=== PATIENT | female | born 1985 | race African-American/Black ===

== ENCOUNTER 2016-06-12 00:53 | Emergency (ER) | payer MEDICARE, OTHER ==
[~2016-06-12] VITALS: Ht 160 cm; Wt 155.0 kg
[~2016-06-12 00:53] MED LIST: LITH450 PO; RISP3 PO
[2016-06-12 00:57] VITALS: BP 122/87; PULSE 88; RESP 15; TEMP 97.8; O2SAT 100
[2016-06-12] MEDS ORDERED: diphenhydrAMINE HCL 50 MG CAP PO ONE (01:45)
--- NOTE | 2016-06-12 01:47 | PD ---
HPI Chief Complaint: Skin Problem Time Seen by Provider: 01:43 Travel History International Travel<30 days: No Contact w/Intl Traveler<30days: No Traveled to known affect area: No History of Present Illness HPI 31-year-old black female presents emergency Department with complaints of a pruritic rash under her breasts and on her right side. She does not recall any causative agent. She has not been sick recently. She does not have any allergies and medicines. Symptoms are mild to moderate. PFSH Past Medical History Bipolar Disorder: Yes Anxiety: Yes Depression: Yes Cardiovascular Problems: Yes (Per patient, used to have chest pains) High Cholesterol: Yes Chest Pain: Yes Developmental Delay: Yes Diabetes: Yes Diminished Hearing: No Endocrine: No Gastrointestinal Disorders: Yes Genitourinary: Yes Headaches: Yes (Per Patient) Hiatal Hernia: Yes (Hx per records) Hypertension: No Immune Disorder: No Implanted Vascular Access Dvce: No Musculoskeletal: No Neurologic: Yes Psychiatric: Yes Reproductive: No Respiratory: No Immunizations Current: Yes Schizophrenia: Yes Seizures: Yes (Per Patient) : 6 Para: 5 Miscarriage: 0 : 0 Past Surgical History Body Medical Devices: UNABLE TO RECORD INTERVIEW - PT UNABLE TO RESPOND Neurologic Surgery: No Social History Alcohol Use: No Tobacco Use: Yes (PACK PER WEEK) Substance Use: No Allergies-Medications (Allergen,Severity, Reaction): Coded Allergies: No Known Allergies (Unverified , 06/12/16) Reported Meds & Prescriptions Reported Meds & Active Scripts Active [place] Carbonate ER ([place] Carbonate) 450 Mg Tabcr 900 Mg PO BID 30 Days Reported Risperdal (Risperidone) 3 Mg Tab 4 Mg PO BID Review of Systems Except as stated in HPI: all other systems reviewed are Neg General / Constitutional: No: Fever, Chills Eyes: No: Blurred Vision, Photophobia HENT: No: Headaches, Sore Throat, Congestion Cardiovascular: No: Chest Pain or Discomfort, Palpitations Respiratory: No: Cough, Shortness of Breath Gastrointestinal: No: Nausea (yes) Genitourinary: No: Urgency, Frequency Musculoskeletal: No: Myalgias, Pain Skin: Positive Rash, Positive Itching, No Lumps, No Hives Neurologic: No: Headache, Change in Mentation Physical Exam Narrative GENERAL: Well-developed, well-nourished in no acute distress. Nontoxic appearing. The patient's examined with Veronica and the nurse present. HEAD: Normocephalic, atraumatic. EYES: Pupils equal round and reactive. Extraocular motions intact. No scleral icterus. No injection or drainage. ENT: TMs clear without erythema. The external auditory canals clear. Nose: clear . Posterior pharynx is pink and moist. No tonsillar edema or exudate. Uvula midline. Airway patent. NECK: Trachea midline.Supple, nontender, moves head freely. No central bony tenderness or spasm. CARDIOVASCULAR: Regular rate and rhythm without murmurs, gallops, or rubs. RESPIRATORY: Clear to auscultation. Breath sounds equal bilaterally. No wheezes , rales, or rhonchi. GASTROINTESTINAL: Abdomen soft, non-tender, nondistended. No hepato-splenomegaly , or palpable masses. No guarding. EXTREMITIES: No clubbing, cyanosis, or edema. No joint tenderness, effusion, or edema noted. BACK: Nontender without deformity or crepitance. No flank tenderness. Skin: The patient has macular slightly scaly circular and ovoid lesions up underneath both breasts and just lateral to the right breast on the anterior axillary line area. There are no lesions on the extremities or abdomen. Data Data Last Documented VS Vital Signs Date Time Temp Pulse Resp B/P Pulse Ox O2 Delivery O2 Flow Rate FiO2 06/12/16 00:57 97.8 88 15 122/87 100 Room Air Orders Ed Urine Pregnancytest Poc (06/12/16 01:41) Diphenhydramine (Benadryl) (06/12/16 01:45) MDM Medical Decision Making Medical Screen Exam Complete: Yes Emergency Medical Condition: Yes Medical Record Reviewed: Yes Interpretation(s) HCG negative Differential Diagnosis MDM: High Differential diagnoses: Abscess, folliculitis, cellulitis, lymphangitis, abrasion, contact dermatitis, intertrigo, allergic reaction, pityriasis Narrative Course The patient states that she has not had a period in as long as she can remember. She would like to be checked for . Patient is given Benadryl for itching. This is dermatitis Diagnosis Primary Impression: Dermatitis Patient Instructions: General Instructions Additional Instructions: Rest. Keep clean and dry. Zyrtec and triamcinolone. Follow-up with your doctor next week. Med/Other Pt SpecificInfo: Prescription(s) given Scripts Triamcinolone Topical 0.1% Cream1 Applic TOPICAL BID #30 GM Prov:Shilpa Montejo MD 06/12/16 Cetirizine (Zyrtec Allergy)10 Mg Cap10 Mg PO DAILY #10 CAP Prov:Shilpa Montejo MD 06/12/16 Disposition: 01 DISCHARGE HOME Condition: Stable Farshad Arellano Jun 12, 2016 01:47
[2016-06-12] MEDS ORDERED: ZYRT10CA PO (02:06)
[2016-06-12] MEDS ORDERED: TRIA.1%T TOPICAL (02:06)
== END 2016-06-12 02:18 | disposition home or self-care (01) ==
LOC: NEPB 00:53
DX: L30.9 Dermatitis, unspecified (principal); Z32.02 Encounter for pregnancy test, result negative; F17.210 Nicotine dependence, cigarettes, uncomplicated; F31.9 Bipolar disorder, unspecified; F20.9 Schizophrenia, unspecified; F41.8 Other specified anxiety disorders; E11.9 Type 2 diabetes mellitus without complications
CPT/HCPCS: 84703; 99282; Q0163

== ENCOUNTER 2016-08-23 09:29 | Emergency (ER) | payer MEDICARE, OTHER ==
[~2016-08-23] VITALS: Ht 160 cm; Wt 130.0 kg
[~2016-08-23 09:29] MED LIST changes: +TRIA.1%T TOPICAL; +ZYRT10CA PO
[2016-08-23 09:32] VITALS: BP 119/80; PULSE 70; RESP 20; TEMP 97.3; O2SAT 98
[2016-08-23] MEDS ORDERED: LITH450T PO (09:56)
[2016-08-23] MEDS ORDERED: TOPA25TA8 PO (09:56)
[2016-08-23] MEDS ORDERED: LURA1TAB2 PO (09:56)
--- NOTE | 2016-08-23 09:58 | PD ---
HPI Chief Complaint: Wallpaper Installer Problem/Complaint Time Seen by Provider: 09:44 Travel History International Travel<30 days: No Contact w/Intl Traveler<30days: No Traveled to known affect area: No History of Present Illness HPI The patient is a 31-year-old [place] female who presents to the emergency Department for vaginal bleeding. The patient is a whose last menstrual cycle was approximately 3 years ago when she was 28 years old. The patient states 3 days ago she developed vaginal bleeding which she describes as dark, clots, and moderate in intensity. The patient also complains of lower abdominal pain cramping that radiates to the back. Patient denies any nausea, vomiting, dysuria, frequency, or urgency. The patient does have a history of underlying psychiatric disorders for which she takes lithium, denies any known history of thyroid disorders. PFSH Past Medical History Bipolar Disorder: Yes Anxiety: Yes Depression: Yes Cardiovascular Problems: Yes High Cholesterol: Yes Chest Pain: Yes Developmental Delay: Yes Diabetes: Yes Patient Takes Glucophage: No Diminished Hearing: No Endocrine: No Gastrointestinal Disorders: Yes Genitourinary: Yes Headaches: Yes Hiatal Hernia: Yes Hypertension: No Immune Disorder: No Implanted Vascular Access Dvce: No Musculoskeletal: No Neurologic: Yes Psychiatric: Yes Reproductive: No Respiratory: No Immunizations Current: Yes Schizophrenia: Yes Seizures: Yes ?: Unknown : 6 Para: 5 Miscarriage: 0 : 0 Past Surgical History Body Medical Devices: UNABLE TO RECORD INTERVIEW - PT UNABLE TO RESPOND Neurologic Surgery: No Social History Alcohol Use: No Tobacco Use: Yes Substance Use: No Allergies-Medications (Allergen,Severity, Reaction): Coded Allergies: No Known Allergies (Unverified , 08/23/16) Reported Meds & Prescriptions Reported Meds & Active Scripts Active Reported Topamax (Topiramate) 25 Mg Tab Unknown Dose PO BID Latuda (Lurasidone) 60 Mg Tab 60 Mg PO BID [place] Carbonate ER ([place] Carbonate) 450 Mg Tab 900 Mg PO BID Review of Systems Except as stated in HPI: all other systems reviewed are Neg General / Constitutional: No: Fever Cardiovascular: No: Chest Pain or Discomfort Respiratory: No: Shortness of Breath Gastrointestinal: No: Nausea, Vomiting, Abdominal Pain Genitourinary: Positive: Pelvic Pain, Dysmenorrhea, Menorrhagia, Metorrhagia, Vaginal Bleeding, No: Dysuria Psychiatric: Positive: Disorder of Thought Physical Exam Narrative GENERAL: Awake, alert, 31-year-old female who appears her stated age and is in no acute respiratory distress. SKIN: Focused skin assessment warm/dry. HEAD: Atraumatic. Normocephalic. EYES: Pupils equal and round. No scleral icterus. No injection or drainage. ENT: No nasal bleeding or discharge. Mucous membranes pink and moist. NECK: Trachea midline. No JVD. CARDIOVASCULAR: Regular rate and rhythm. No murmur appreciated. RESPIRATORY: No accessory muscle use. Clear to auscultation. Breath sounds equal bilaterally. GASTROINTESTINAL: Abdomen soft, obese, no rebound tenderness. Back: No CVA tenderness. Pelvic: The exam was performed in the presence of a female nurse. External examination reveals blood at the introitus. Speculum examination reveals small metal blood in the vaginal vault with a few small dark-colored blood clots. Cervix is closed. MUSCULOSKELETAL: No obvious deformities. No clubbing. No cyanosis. No edema. NEUROLOGICAL: Awake and alert. No obvious cranial nerve deficits. Motor grossly within normal limits. Normal speech. PSYCHIATRIC: Appropriate mood and affect; insight and judgment normal. Data Data Last Documented VS Vital Signs Date Time Temp Pulse Resp B/P Pulse Ox O2 Delivery O2 Flow Rate FiO2 08/23/16 09:32 97.3 70 20 119/80 98 Room Air Orders Complete Blood Count With Diff (08/23/16 09:54) Comprehensive Metabolic Panel (08/23/16 09:54) Urinalysis - C+S If Indicated (08/23/16 09:54) Ed Urine Pregnancytest Poc (08/23/16 09:54) Thyroid Stimulating Hormone (08/23/16 09:54) Free Thyroxine (T4) (08/23/16 09:54) Free T3 (08/23/16 09:54) [place] (Li) (08/23/16 09:58) Labs Laboratory Tests Test 08/23/16 10:25 White Blood Count 6.6 TH/MM3 Red Blood Count 4.55 MIL/MM3 Hemoglobin 11.2 GM/DL Hematocrit 35.1 % Mean Corpuscular Volume 77.0 FL Mean Corpuscular Hemoglobin 24.6 PG Mean Corpuscular Hemoglobin 32.0 % Concent Red Cell Distribution Width 18.1 % Platelet Count 322 TH/MM3 Mean Platelet Volume 7.6 FL Neutrophils (%) (Auto) 52.4 % Lymphocytes (%) (Auto) 39.4 % Monocytes (%) (Auto) 5.1 % Eosinophils (%) (Auto) 2.0 % Basophils (%) (Auto) 1.1 % Neutrophils # (Auto) 3.5 TH/MM3 Lymphocytes # (Auto) 2.6 TH/MM3 Monocytes # (Auto) 0.3 TH/MM3 Eosinophils # (Auto) 0.1 TH/MM3 Basophils # (Auto) 0.1 TH/MM3 CBC Comment AUTO DIFF Differential Comment AUTO DIFF CONFIRMED Sodium Level 139 MEQ/L Potassium Level 3.4 MEQ/L Chloride Level 108 MEQ/L Carbon Dioxide Level 24.5 MEQ/L Anion Gap 7 MEQ/L Blood Urea Nitrogen 6 MG/DL Creatinine 0.71 MG/DL Estimat Glomerular Filtration 115 ML/MIN Rate Random Glucose 85 MG/DL Calcium Level 8.3 MG/DL Total Bilirubin 0.3 MG/DL Aspartate Amino Transf 11 U/L (AST/SGOT) Alanine Aminotransferase 16 U/L (ALT/SGPT) Alkaline Phosphatase 112 U/L Total Protein 7.3 GM/DL Albumin 3.2 GM/DL Free Thyroxine 1.04 NG/DL Free Triiodothyronine (T3) 2.46 PG/ML pg/dL Thyroid Stimulating Hormone 2.410 uIU/ML 3rd Gen [place] Level 0.1 MEQ/L MDM Medical Decision Making Medical Screen Exam Complete: Yes Emergency Medical Condition: Yes Medical Record Reviewed: Yes Interpretation(s) Laboratory Tests Test 08/23/16 10:25 White Blood Count 6.6 TH/MM3 Red Blood Count 4.55 MIL/MM3 Hemoglobin 11.2 GM/DL Hematocrit 35.1 % Mean Corpuscular Volume 77.0 FL Mean Corpuscular Hemoglobin 24.6 PG Mean Corpuscular Hemoglobin 32.0 % Concent Red Cell Distribution Width 18.1 % Platelet Count 322 TH/MM3 Mean Platelet Volume 7.6 FL Neutrophils (%) (Auto) 52.4 % Lymphocytes (%) (Auto) 39.4 % Monocytes (%) (Auto) 5.1 % Eosinophils (%) (Auto) 2.0 % Basophils (%) (Auto) 1.1 % Neutrophils # (Auto) 3.5 TH/MM3 Lymphocytes # (Auto) 2.6 TH/MM3 Monocytes # (Auto) 0.3 TH/MM3 Eosinophils # (Auto) 0.1 TH/MM3 Basophils # (Auto) 0.1 TH/MM3 CBC Comment AUTO DIFF Differential Comment AUTO DIFF CONFIRMED Sodium Level 139 MEQ/L Potassium Level 3.4 MEQ/L Chloride Level 108 MEQ/L Carbon Dioxide Level 24.5 MEQ/L Anion Gap 7 MEQ/L Blood Urea Nitrogen 6 MG/DL Creatinine 0.71 MG/DL Estimat Glomerular Filtration 115 ML/MIN Rate Random Glucose 85 MG/DL Calcium Level 8.3 MG/DL Total Bilirubin 0.3 MG/DL Aspartate Amino Transf 11 U/L (AST/SGOT) Alanine Aminotransferase 16 U/L (ALT/SGPT) Alkaline Phosphatase 112 U/L Total Protein 7.3 GM/DL Albumin 3.2 GM/DL Free Thyroxine 1.04 NG/DL Free Triiodothyronine (T3) 2.46 PG/ML pg/dL Thyroid Stimulating Hormone 2.410 uIU/ML 3rd Gen [place] Level 0.1 MEQ/L Differential Diagnosis Differential diagnosis includes dysmenorrhea, menorrhagia, dysfunctional uterine bleeding, , medication side effect, hypothyroidism. Narrative Course IV was established, labs are drawn and sent, and the patient was placed on cardiac telemetry monitoring and continuous pulse oximetry monitoring. TSH, free T4, T3, and lithium level were sent to lab. A pelvic exam was performed in the presence of a female nurse. Hemoglobin is unremarkable. TSH, free T3, free T4 normal. [place] is subtherapeutic. The patient appears to have abnormal vaginal bleeding, is advised to follow-up with a booster operator. Diagnosis Primary Impression: Vaginal bleeding Patient Instructions: General Instructions Additional Instructions: Please provide the patient a copy of her labs at discharge. Follow-up with gynecology on an outpatient basis. Return if symptoms worsen or progress. Disposition: 01 DISCHARGE HOME Condition: Stable Joe Mccormick MD August 23, 2016 09:58
[2016-08-23 10:41] LABS: AUTOMATED NEUTROPHIL # 3.5 TH/MM3 (1.8-7.7); BASOPHIL # 0.1 TH/MM3 (0-0.2); BASOPHIL % 1.1 % (0.0-2.0); EOSINOPHIL # 0.1 TH/MM3 (0-0.4); HEMATOCRIT 35.1 % (35.0-46.0); LYMPH % 39.4 % (9.0-44.0); LYMPHOCYTE # 2.6 TH/MM3 (1.0-4.8); MEAN CORPUSCULAR HEMOGLOBIN 24.6 PG (27.0-34.0); MONO % 5.1 % (0.0-8.0); NEUT % 52.4 % (16.0-70.0); PLATELET COUNT 322 TH/MM3 (150-450); RED BLOOD COUNT 4.55 MIL/MM3 (4.00-5.30); RED CELL DISTRIBUTION WIDTH 18.1 % (11.6-17.2); WHITE BLOOD COUNT 6.6 TH/MM3 (4.0-11.0)
[2016-08-23 10:44] LABS: HEMO FLAGS AUTO DIFF
[2016-08-23 10:58] LABS: ANION GAP 7 MEQ/L (5-15); AST (GOT) 11 U/L (15-37); BICARBONATE 24.5 MEQ/L (21.0-32.0); BLOOD UREA NITROGEN 6 MG/DL (7-18); CHLORIDE 108 MEQ/L (98-107); GLOMERULAR FILTRATION RATE 115 ML/MIN (>89); POTASSIUM 3.4 MEQ/L (3.5-5.1); SODIUM (NA) 139 MEQ/L (136-145)
[2016-08-23 11:09] LABS: ALKALINE PHOSPHATASE 112 U/L (45-117); ALT (GPT) 16 U/L (10-53); FREE T3 2.46 PG/ML (2.18-3.98); FREE T4 1.04 NG/DL (0.76-1.46); TOTAL BILIRUBIN ADULT 0.3 MG/DL (0.2-1.0)
[2016-08-23 11:21] LABS: SCAN/DIFF AUTO DIFF CONFIRMED
[2016-08-23 12:10] LABS: BLOOD, URINE LARGE (NEG); GLUCOSE,URINE NEG (NEG); KETONE, URINE NEG (NEG); MUCUS URINE MOD /lpf (OCC); NITRITE,URINE NEG (NEG); PH, URINE 6.5 (5.0-8.5); SQUAMOUS EPITHELIAL CELL URINE 1 /hpf (0-5)
[2016-08-23 12:12] LABS: URINE COLOR RED (YELLW/STRAW)
[2016-08-23 12:13] LABS: COMMENT (UR) CULTURE INDICATED; CULTURE IF INDICATED CULTURE INDICATED
[2016-08-23] MEDS ORDERED: BACT800T5 PO (12:26)
== END 2016-08-23 13:10 | disposition home or self-care (01) ==
LOC: NEPD 09:29
DX: N93.9 Abnormal uterine and vaginal bleeding, unspecified (principal); R10.30 Lower abdominal pain, unspecified; F31.9 Bipolar disorder, unspecified; F41.9 Anxiety disorder, unspecified; E78.00 Pure hypercholesterolemia, unspecified; E11.9 Type 2 diabetes mellitus without complications; F20.9 Schizophrenia, unspecified
CPT/HCPCS: 80053; 80178; 81001; 84439; 84443; 84481; 84703; 85025; 87086; 99284

== ENCOUNTER 2016-10-31 10:10 | Emergency (ER) | payer MEDICARE, OTHER ==
[~2016-10-31] VITALS: Ht 160 cm; Wt 129.5 kg
[~2016-10-31 10:10] MED LIST changes: +BACT800T5 PO; -LITH450 PO; +LITH450T PO; +LURA1TAB2 PO; -RISP3 PO; +TOPA25TA8 PO; -TRIA.1%T TOPICAL; -ZYRT10CA PO
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
[2016-10-31 10:24] VITALS: BP 121/69; PULSE 66; RESP 18; TEMP 98.6; O2SAT 99
[2016-10-31] MEDS ORDERED: TETANUS/DIPHTHERIA TOXOID ADULT 0.5 ML VIAL IM ONE (10:30)
== END 2016-10-31 11:01 | disposition home or self-care (01) ==
LOC: NEPD 10:10
DX: S50.811A Abrasion of right forearm, initial encounter (principal); F31.9 Bipolar disorder, unspecified; F41.9 Anxiety disorder, unspecified; E11.9 Type 2 diabetes mellitus without complications; E78.00 Pure hypercholesterolemia, unspecified; R56.9 Unspecified convulsions; Z23 Encounter for immunization; Z72.0 Tobacco use; Y04.2XXA Assault by strike against or bumped into by another person, initial encounter
CPT/HCPCS: 90471; 90714

== ENCOUNTER 2018-01-15 20:22 | Inpatient (IN) ==
--- NOTE | 2018-01-15 23:22 | ED ---
HPI General Chief complaint: Medical Clearance Stated complaint: pshyc eval Time Seen by Provider: 01/15/18 22:31 History of Present Illness HPI narrative: Patient is a 32-year-old female presents emergency department and flight of ideas and a suspected manic episode. Patient told triage upfront she thinks she has AIDS and should not be outdoors. For me she is flight of ideas and starts our conversation with "I am not under a Coombs act". When asked if she is been under Coombs act before she states I do not know. She is interacting with unseen people in the room. She really is limited in her history. Related Data Home Medications Medication Instructions Recorded Confirmed Unable to Obtain Home Meds 01/15/18 01/15/18 Allergies Allergy/AdvReac Type Severity Reaction Status Date / Time No Known Allergies Allergy Uncoded 10/31/16 10:22 Review of Systems ROS Unobtainable ROS Unobtainable: unobtainable due to mental condition [facility] Medical History Medical History Bipolar 1 disorder (Acute) Schizophrenia (Acute) Social History Social History Substance History: Unable to Obtain Second Hand Smoke Exposure: Yes Smoking Status: Current every day smoker Tobacco Type: Cigarettes How Often Do You Have a Drink Containing Alcohol: Monthly or less Recent Travel in [facility] within the Last 8 Weeks: No Recent Out of Country Travel within the Last 8 Weeks: No Exam Narrative Exam Narrative: GENERAL: Well-developed morbidly obese female pacing the room, going to the bathroom over and over again and then returning to her room. SKIN: Focused skin assessment warm/dry. HEAD: Atraumatic. Normocephalic. EYES: Pupils equal and round. No scleral icterus. No injection or drainage. ENT: No nasal bleeding or discharge. Mucous membranes pink and moist. NECK: Trachea midline. No JVD. CARDIOVASCULAR: Regular rate and rhythm. No murmur appreciated. RESPIRATORY: No accessory muscle use. Clear to auscultation. Breath sounds equal bilaterally. GASTROINTESTINAL: Abdomen soft, non-tender, nondistended. Hepatic and splenic margins not palpable. MUSCULOSKELETAL: No obvious deformities. No clubbing. No cyanosis. No edema. NEUROLOGICAL: Awake and alert. No obvious cranial nerve deficits. Motor grossly within normal limits. Normal speech. PSYCHIATRIC: Patient quite inappropriate, flight of ideas, suspicion of manic episode. Course Initial Documented Vital Signs Temperature 98 F 01/15/18 20:30 Pulse Rate 83 01/15/18 20:30 Respiratory Rate 18 01/15/18 20:30 Blood Pressure 113/62 01/15/18 20:30 Pulse Oximetry 98 01/15/18 20:30 Last Documented Vital Signs Temperature 98 F 01/15/18 20:30 Pulse Rate 83 01/15/18 20:30 Respiratory Rate 18 01/15/18 20:30 Blood Pressure 113/62 01/15/18 20:30 Pulse Oximetry 98 01/15/18 20:30 Medical Decision Making MDM Narrative Medical decision making narrative: Patient room to the emergency department, she was examined with female nurse automotive tire technician present all times. She also has a bright red wig in the room as well as some freshly by sanchez. She is unable to provide much of her history and I suspect a manic episode. Review of her records shows that she was admitted to our psychiatric unit with bipolar disease in the past. She has been on lithium in the past as well. I do not think that she is of sound mind to make her own medical decisions and is gravely disabled due to her mental condition and therefore placed under a Coombs act. I have ordered 20 of Geodon IM to facilitate nursing workup as the patient is uncooperative with IV for lithium levels. I think that it is warranted to check a lithium level on this patient prior to clearing her for psychiatric evaluation. At 2325 we are preparing to deliver a dose of Geodon to the patient so that she can properly be evaluated. Patient was able to be persuaded into having Geodon without actively restraining her, psychiatric screener taking additional history from the patient has a Geodon is taking effect and is having good effect to control the patient. The patient was moved to pod where she could be more appropriately observed without additional flight risk. Labs were drawn, lithium level undetectable, Tylenol salicylates negative, CBC and CMP without significant abnormality. Mild hypokalemia mild anemia. The patient can replete this by her normal diet. At this time she is medically cleared for psychiatric evaluation. Medical Screen Exam Complete: Yes Emergency Medical Condition: Yes Lab Data Result diagrams: 01/16/18 00:05 01/16/18 00:05 Lab Results 01/16/18 01/16/18 01/16/18 Range/Units 00:05 00:05 00:05 WBC 6.9 (4.0-11.0) th/mm3 RBC 4.32 (4.00-5.30) mil/mm3 Hgb 10.5 L (11.6-15.3) gm/dL Hct 32.9 L (35.0-46.0) % MCV 76.1 L (80.0-100.0) fL MCH 24.3 L (27.0-34.0) pg MCHC 31.9 L (32.0-36.0) % RDW 18.5 H (11.6-17.2) % Plt Count 290 (150-450) th/mm3 MPV 7.8 (7.0-11.0) fL Neut % (Auto) 67.0 (16.0-70.0) % Lymph % (Auto) 26.8 (9.0-44.0) % [place] % (Auto) 4.7 (0.0-8.0) % Eos % (Auto) 0.7 (0.0-4.0) % Baso % (Auto) 0.8 (0.0-2.0) % Neut # (Auto) 4.7 (1.8-7.7) th/mm3 Lymph # (Auto) 1.9 (1.0-4.8) th/mm3 [place] # (Auto) 0.3 (0.0-0.9) th/mm3 Eos # (Auto) 0.0 (0.0-0.4) th/mm3 Baso # (Auto) 0.1 (0.0-0.2) th/mm3 WBC Differential . Differential Comment Auto diff final Sodium (136-145) meq/L Potassium (3.5-5.1) meq/L Chloride (98-107) meq/L Carbon Dioxide (21.0-32.0) meq/L Anion Gap (5-15) meq/L BUN (7-18) mg/dL Creatinine (0.50-1.00) mg/dL Estimated GFR (>89) mL/min Random Glucose (74-106) mg/dL Calcium (8.5-10.1) mg/dL Total Bilirubin (0.2-1.0) mg/dL AST (15-37) U/L ALT (10-53) U/L Alkaline Phosphatase (45-117) U/L Total Protein (6.4-8.2) g/dL Albumin (3.4-5.0) g/dL TSH (0.358-3.740) uIU/mL Salicylates 3.5 (2.8-20.0) mg/dL Acetaminophen (10.0-30.0) mcg/mL [place] 0.1 L (0.5-1.5) meq/L Serum Alcohol (0-5) mg/dL 01/16/18 Range/Units 00:05 WBC (4.0-11.0) th/mm3 RBC (4.00-5.30) mil/mm3 Hgb (11.6-15.3) gm/dL Hct (35.0-46.0) % MCV (80.0-100.0) fL MCH (27.0-34.0) pg MCHC (32.0-36.0) % RDW (11.6-17.2) % Plt Count (150-450) th/mm3 MPV (7.0-11.0) fL Neut % (Auto) (16.0-70.0) % Lymph % (Auto) (9.0-44.0) % [place] % (Auto) (0.0-8.0) % Eos % (Auto) (0.0-4.0) % Baso % (Auto) (0.0-2.0) % Neut # (Auto) (1.8-7.7) th/mm3 Lymph # (Auto) (1.0-4.8) th/mm3 [place] # (Auto) (0.0-0.9) th/mm3 Eos # (Auto) (0.0-0.4) th/mm3 Baso # (Auto) (0.0-0.2) th/mm3 WBC Differential Differential Comment Sodium 140 (136-145) meq/L Potassium 3.2 L (3.5-5.1) meq/L Chloride 106 (98-107) meq/L Carbon Dioxide 26.4 (21.0-32.0) meq/L Anion Gap 8 (5-15) meq/L BUN 5 L (7-18) mg/dL Creatinine 0.56 (0.50-1.00) mg/dL Estimated GFR Greater than 89 (>89) mL/min Random Glucose 87 (74-106) mg/dL Calcium 8.9 (8.5-10.1) mg/dL Total Bilirubin 0.3 (0.2-1.0) mg/dL AST 16 (15-37) U/L ALT 19 (10-53) U/L Alkaline Phosphatase 89 (45-117) U/L Total Protein 7.9 (6.4-8.2) g/dL Albumin 3.3 L (3.4-5.0) g/dL TSH 2.270 (0.358-3.740) uIU/mL Salicylates (2.8-20.0) mg/dL Acetaminophen Less than 2.0 L (10.0-30.0) mcg/mL [place] (0.5-1.5) meq/L Serum Alcohol Less than 3 (0-5) mg/dL Discharge Plan Discharge Disposition Patient Disposition: 30 Still Patient Discharge Details Diagnosis: Psychosis Physicians Team ED Provider: Raymond Farr Primary Care Provider: UNKNOWN, Rxs /Orders / Referrals /Forms Prescriptions: No Action Unable to Obtain Home Meds RF: 0 Status ED Status: With Doctor
[2018-01-15] MEDS ORDERED: QUEtiapine 100 MG Tablet PO ONE (23:46)
[2018-01-16 00:35] LABS: Anion Gap 8 meq/L (5-15)
[2018-01-16 00:47] LABS: Alanine Aminotransferase 19 U/L (10-53); Albumin 3.3 g/dL (3.4-5.0); Alkaline Phosphatase 89 U/L (45-117); Aspartate Aminotransferase 16 U/L (15-37); Blood Urea Nitrogen 5 mg/dL (7-18); Calcium 8.9 mg/dL (8.5-10.1); Carbon Dioxide 26.4 meq/L (21.0-32.0); Chloride 106 meq/L (98-107); Glomerular Filtration Rate Greater Than 89 mL/min (>89); Glucose,Random 87 mg/dL (74-106); Potassium 3.2 meq/L (3.5-5.1); Sodium 140 meq/L (136-145); Total Protein 7.9 g/dL (6.4-8.2)
[2018-01-16 00:49] LABS: Baso # (Auto) 0.1 th/mm3 (0.0-0.2); Baso % (Auto) 0.8 % (0.0-2.0); Eos % (Auto) 0.7 % (0.0-4.0); Hematocrit 32.9 % (35.0-46.0); Hemoglobin 10.5 gm/dL (11.6-15.3); Lymph # (Auto) 1.9 th/mm3 (1.0-4.8); Lymph % (Auto) 26.8 % (9.0-44.0); Mean Corpuscular HGB Conc 31.9 % (32.0-36.0); Mean Corpuscular Hemoglobin 24.3 pg (27.0-34.0); Mean Corpuscular Volume 76.1 fL (80.0-100.0); Mean Platelet Volume 7.8 fL (7.0-11.0); Mono # (Auto) 0.3 th/mm3 (0.0-0.9); Mono % (Auto) 4.7 % (0.0-8.0); Neut # (Auto) 4.7 th/mm3 (1.8-7.7); Platelet Count 290 th/mm3 (150-450); Red Blood Count 4.32 mil/mm3 (4.00-5.30); Red Cell Distribution Width 18.5 % (11.6-17.2); White Blood Count 6.9 th/mm3 (4.0-11.0)
[2018-01-16 08:19] LABS: Amphetamine Screen,Urine Neg (Neg); Barbiturate Screen,Urine Neg (Neg); Cannabinoid Screen,Urine Neg (Neg); Cocaine Screen,Urine Neg (Neg)
[2018-01-16 08:20] LABS: Opiate Screen,Urine Neg (Neg)
[2018-01-16] MEDS ORDERED: Haloperidol Inj 5 MG/ML Ampul IM ONE (09:06)
[2018-01-16] MEDS ORDERED: Bisacodyl 10 MG Supp RECTAL PRN (09:45)
[2018-01-16] MEDS ORDERED: Aluminum/Magnesium/Simethacone Susp 30 ML UDC PO PRN (09:45)
--- NOTE | 2018-01-16 12:18 | P.HPPSY ---
Provisional Diagnosis Admission Date: January 16, 2018 09:47 Maddock I.: Bipolar disorder type I, acute manic exacerbation Maddock II.: Deferred Maddock III.: 21-week Competence Certification of Person's Competence To Provide Express and Informed Consent I have personally examined Marce Bansal, a person being served at [facility] on, January 16, 2018 1200. Express and informed consent means consent voluntarily given in writing, by a competent person, after sufficient explanation and disclosure of the subject matter involved to enable the person to make a knowing and willful decision without any element of force, fraud, deceit, duress, or other form of constraint or coercion. This person is 18 years of age or older, is not now known to be incompetent to consent to treatment with a guardian advocate, and does not have a health care surrogate or proxy currently making medical treatment decisions. I have found this person to be one of the following: [] Competent to provide express and informed consent, as defined above, for voluntary admission to this facility and is competent to provide express and informed consent for treatment. He/she has the consistent capacity to make well reasoned, willful, and knowing decisions concerning his or her medical or mental health treatment. The person fully and consistently understands the purpose of the admission for examination/placement and is fully capable of personally exercising all rights assured [place] Incompetent to provide express and informed consent to voluntary admission, and this is incompetent to provide express and informed consent to treatment. The person must be transferred to involuntary status and a petition for a guardian advocate filed with the Circuit Court. [x] Refusing to provide express and informed consent to voluntary admission but is competent to provide express and informed consent for treatment. The person must be discharged or transferred to involuntary status. Form shall be completed within 24 hours of a person's arrival at the receiving facility and filed in the clinical record of each person: 1. Admitted on a voluntary basis 2. Permitted to provide express and informed consent to his/her own treatment 3. Allowed to transfer from involuntary to voluntary status 4. Prior to permitting a person to consent to his or her own treatment after having been previously found incompetent to consent to treatment. History of Present Illness Capacity: Has capacity History of Present Illness: The patient is a 32-year-old -[place] woman, domiciled with her grandmother, single, unemployed, supported by [facility], with a significant psychiatric history of bipolar disorder, previous psychiatric hospitalizations, the last hospitalization was over 10 years ago, established outpatient care with [facility], she has not been in treatment throughout the , no previous suicidal attempts, she is in the 21st week of , who presents emergency department and flight of ideas and a suspected manic episode. Patient told triage upfront she thinks she has AIDS and should not be outdoors. For me she is flight of ideas and starts our conversation with "I am not under a Coombs act ". When asked if she is been under Coombs act before she states I do not know. She is interacting with unseen people in the room. She really is limited in her history. Chart reviewed. No collateral information available at this moment. On psychiatric evaluation the patient is found in the curry, she has been walking back and forward, asking to be released. The patient has been medicated already twice with IM medication in order to calm her down. She is disorganized, with a prominent increase in language production, at times pressure speech. She says that she has twins, "and I even believe that I have 3 kids inside me". She keeps saying that she is here in the hospital because she passed out, she said "is not that I talk a lot, is that you do not understand me, my mother, grandmother and to my uncles were killed last night". At the same time that the patient is expressing his ideas, she is laughing very inappropriately. She has been witnessed talking to herself, she is unable to stay still 1 second in the unit, constantly knocking doors, enter into other patient's rooms. She is fully oriented x3, no gross cognitive impairment present. PPHx: significant psychiatric history of bipolar disorder, previous psychiatric hospitalizations, the last hospitalization was over 10 years ago, established outpatient care with [facility], she has not been in treatment throughout the , no previous suicidal attempts, PMHx: 21 week Substance Hx: She denies Family Hx: Mother and father are bipolar Social Hx: Patient was born in [place], she lives with her grandmother in [facility], she is single, she has a boyfriend, unemployed, supported by [facility], her highest level of education is high school. - Inpatient Certification I certify that the inpatient services were ordered in accordance with Medicare regulations governing the order. This includes certification that hospital inpatient services are reasonable and necessary and in the case of services not specified as inpatient-only under 42 CFR 419.22(n), that they are appropriately provided as inpatient services in accordance to with the 2-midnight benchmark under 43 CFR 412.3(e) I certify that inpatient psychiatric hospital services are medically necessary. Evaluation and treatment and/or diagnostic testing are expected to improve the patient's condition. The patient needs on a daily basis, active treatment furnished directly by or requiring the supervision of inpatient psychiatric facility personnel. Estimated Total Length of Stay (Days): 7 Plans for Post Hospital Care: Home Review of Systems All other systems reviewed negative except as stated in HPI Psychiatric: Reports anxiety, Reports irritability, Reports mood swings, Reports paranoia PMFSH - History History Provided By: Patient - Medical History Medical History: Medical History (Last Updated 10/11/17 @ 19:18 by Paco Pool) Bipolar 1 disorder Schizophrenia - Tobacco History Second Hand Smoke Exposure: Yes Tobacco Use In Past 30 Days: Yes Smoking Status: Current every day smoker Tobacco Type: Cigarettes - Alcohol History How Often Do You Have a Drink Containing Alcohol: Monthly or less - Substance Use History Substance History: Unable to Obtain - Travel History Recent Travel in the [place] Within the Last 8 Weeks: No Recent Travel Out of the Country Within the Last 8 Weeks: No - Immunization History Tetanus Immunization: Unsure Medications and Allergies Active Medications: Active Medications Al Hydrox/Mg Hydrox/Simethicone (Mag-Al Plus Susp Liq) 30 ml PO Q6H PRN PRN Reason: DYSPEPSIA Al Hydroxide/Mg Hydroxide (Milk Of Magnesia Liq) 30 ml PO Q12H PRN PRN Reason: Mild Constipation Bisacodyl (Dulcolax Supp) 10 mg RECTAL DAILY PRN PRN Reason: SEVERE CONSITIPATION Lactulose (Lactulose Liq) 30 ml PO DAILY PRN PRN Reason: SEVERE CONSITIPATION Senna/Docusate Sodium (Corazon-Colace) 1 tab PO BID KATHY Sennosides (Senokot) 17.2 mg PO Q12H PRN PRN Reason: Moderate Constipation Allergies Allergy/AdvReac Type Severity Reaction Status Date / Time No Known Allergies Allergy Uncoded 10/31/16 10:22 Home Medications Medication Instructions Recorded Confirmed Type Unable to Obtain Home Meds 01/15/18 01/15/18 History Results - Labs CBC & Chem 7: 01/16/18 00:05 01/16/18 00:05 Labs: Laboratory Results - last 24 hr 01/16/18 01/16/18 01/16/18 00:05 00:05 00:05 WBC 6.9 RBC 4.32 Hgb 10.5 L Hct 32.9 L MCV 76.1 L MCH 24.3 L MCHC 31.9 L RDW 18.5 H Plt Count 290 MPV 7.8 Neut % (Auto) 67.0 Lymph % (Auto) 26.8 [place] % (Auto) 4.7 Eos % (Auto) 0.7 Baso % (Auto) 0.8 Neut # (Auto) 4.7 Lymph # (Auto) 1.9 [place] # (Auto) 0.3 Eos # (Auto) 0.0 Baso # (Auto) 0.1 WBC Differential . Differential Comment Auto diff final Sodium Potassium Chloride Carbon Dioxide Anion Gap BUN Creatinine Estimated GFR Random Glucose Calcium Total Bilirubin AST ALT Alkaline Phosphatase Total Protein Albumin TSH Beta HCG, Quant Salicylates 3.5 Urine Opiates Screen Acetaminophen Ur Barbiturates Screen Ur Amphetamines Screen U Benzodiazepines Scrn Chillum Less than 0.1 L Urine Cocaine Screen U Cannabinoids Screen Serum Alcohol 01/16/18 01/16/18 01/16/18 00:05 00:05 07:50 WBC RBC Hgb Hct MCV MCH MCHC RDW Plt Count MPV Neut % (Auto) Lymph % (Auto) [place] % (Auto) Eos % (Auto) Baso % (Auto) Neut # (Auto) Lymph # (Auto) [place] # (Auto) Eos # (Auto) Baso # (Auto) WBC Differential Differential Comment Sodium 140 Potassium 3.2 L Chloride 106 Carbon Dioxide 26.4 Anion Gap 8 BUN 5 L Creatinine 0.56 Estimated GFR Greater than 89 Random Glucose 87 Calcium 8.9 Total Bilirubin 0.3 AST 16 ALT 19 Alkaline Phosphatase 89 Total Protein 7.9 Albumin 3.3 L TSH 2.270 Beta HCG, Quant 62914 H Salicylates Urine Opiates Screen Neg Acetaminophen Less than 2.0 L Ur Barbiturates Screen Neg Ur Amphetamines Screen Neg U Benzodiazepines Scrn Neg Chillum Urine Cocaine Screen Neg U Cannabinoids Screen Neg Serum Alcohol Less than 3 Exam Vital signs: Vital Signs 01/15/18 20:30 Temperature 98 F Pulse Rate 83 Respiratory Rate 18 Blood Pressure 113/62 Pulse Oximetry 98 Intake & Output 01/15/18 01/16/18 01/16/18 18:59 06:59 18:59 Weight 102.058 kg Narrative: No EPS, no catatonia, no stiffness, she does have some psychomotor agitation. - Constitutional moderate distress - Routine HEENT Exam Head: Present: normocephalic Eye: Present: EOMI, PERRL ENT: Present: mucous membranes moist Mental Status Examination Appearance: Dirty, Disheveled Consciousness: Alert Orientation: x4 Motor Activity: Normal gait Speech: Pressured, Rapid Language: Adequate Fund of Knowledge: Adequate Attention and Concentration: Adequate Memory: Unremarkable Mood: Irritable, Manic Affect: Appropriate, Irritable, Labile Thought Process & Associations: Loose associations, Tangential Thought Content: Preoccupations, Delusional Hallucination Type: None Delusion Type: Bizarre, Paranoid Suicidal Ideation: No Suicidal Plan: No Suicidal Intention: No Homicidal Ideation: No Homicidal Plan: No Homicidal Intention: No Insight: Poor Judgment: Poor Assessment and Plan - Assessment (1) Bipolar 1 disorder Code(s): F31.9 - Bipolar disorder, unspecified Status: Acute - Plan Plan: Estimated LOS: [] days On my psychiatric evaluation today I find a patient that is quite psychomotor agitated, talkative, with pressure speech, disorganized, with grandeur and paranoid delusions, decreased attention span. The patient has a psychiatric history of bipolar disorder, previous psychiatric hospitalizations, previous suicide attempts, she is in the 21st week of , her psychotropics were discontinued when she became , but at this moment the patient seems to be acutely manic. Given her level of monica, the patient represents acute danger to self and to her , she needs to be admitted in psychiatry for stabilization. I am going to start Haldol 5 mg twice daily for monica. Clonazepam 0.5 mg twice daily to calm the patient down. But the patient may benefit of an atypical antipsychotic, after discussion with outpatient psychiatrist. Patient can be transferred to 2700. Will consult psychiatry for second opinion. Might consider to consult LANDSCAPE [facility]. Justification for Continued Inpatient Stay: Continue psychiatric hospitalization for stabilization.
[2018-01-16] MEDS: Haloperidol 5 MG Tablet PO SCH ×3 (13:17→21:22)
--- NOTE | 2018-01-16 15:30 | P.CONOB ---
History of Present Illness Consult date: 01/16/18 Reason for Consult: Primary Care Physician: UNKNOWN Chief Complaint: History of Present Illness: 32 yo at 17 weeks who is admitted with bipolar disorder with acute manic exacerbation. History provided by patient, but she is a poor historian. She has pressured speech and difficulty completing her thoughts and answering questions appropriately. The OB team was consulted due to patient being . A brief US was completed in the ED and measured the fetus at 17 weeks gestation with FHR 142. Patient believes that she is 21 weeks . She reports that she gets her care in [place]. She does not know the name of her provider although through record review it may be [facility]. Patient believes that she is with twins. Patient states that she has not been on any psychiatric medications for over 1 month. She previously took Latuda. PMH: Patient reports a history of anemia. Record review reveals bipolar disorder , schizophrenia. PSH: None Medications: No home medications Family History: Unobtainable due to mental status Weeks Gestation:: 17 Para: 5 : 6 Review of Systems unobtainable due to mental status PMFSH - History History Provided By: Patient - Medical / Surgical Hx Neg / Unobtainable Surgical History: No Previous Surgery - Medical History Medical History: Medical History (Last Updated 10/11/17 @ 19:18 by Paco Pool) Bipolar 1 disorder Schizophrenia - Social History I have reviewed the patient's Social History: Yes - Tobacco History Second Hand Smoke Exposure: Yes Tobacco Use In Past 30 Days: Yes Smoking Status: Current every day smoker Tobacco Type: Cigarettes - Alcohol History How Often Do You Have a Drink Containing Alcohol: Monthly or less - Substance Use History Substance History: Unable to Obtain - Travel History Recent Travel in the [facility] Within the Last 8 Weeks: No Recent Travel Out of the Country Within the Last 8 Weeks: No - Immunization History Tetanus Immunization: Unsure Medications and Allergies Allergies Allergy/AdvReac Type Severity Reaction Status Date / Time No Known Allergies Allergy Uncoded 10/31/16 10:22 Home Medications Medication Instructions Recorded Confirmed Type Unable to Obtain Home Meds 01/15/18 01/15/18 History Active Medications: Active Medications Al Hydrox/Mg Hydrox/Simethicone (Mag-Al Plus Susp Liq) 30 ml PO Q6H PRN PRN Reason: DYSPEPSIA Al Hydroxide/Mg Hydroxide (Milk Of Magnesia Liq) 30 ml PO Q12H PRN PRN Reason: Mild Constipation Bisacodyl (Dulcolax Supp) 10 mg RECTAL DAILY PRN PRN Reason: SEVERE CONSITIPATION Haloperidol (Haldol) 5 mg PO BID [facility] Last Admin: 01/16/18 14:00 Dose: 5 mg Lactulose (Lactulose Liq) 30 ml PO DAILY PRN PRN Reason: SEVERE CONSITIPATION Senna/Docusate Sodium (Corazon-Colace) 1 tab PO BID [facility] Sennosides (Senokot) 17.2 mg PO Q12H PRN PRN Reason: Moderate Constipation Exam Vital signs: Vital Signs 01/15/18 20:30 01/16/18 11:25 Temperature 98 F Pulse Rate 83 85 Respiratory Rate 18 20 Blood Pressure 113/62 111/78 Pulse Oximetry 98 98 Intake & Output 01/15/18 01/16/18 01/16/18 18:59 06:59 18:59 Weight 102.058 kg - Constitutional no acute distress, morbidly obese, disheveled - Routine HEENT Exam Head: Present: normocephalic, atraumatic - Routine Abdominal Exam Comments: gravid to about 20 weeks, fundus soft, nontender, no rebound, no guarding - Routine Extremities Exam Present: full ROM - Routine Neurological Exam Present: altered mental status, normal speech Results - Labs CBC & Chem 7: 01/16/18 00:05 01/16/18 00:05 Labs: Laboratory Results - last 24 hr 01/16/18 01/16/18 01/16/18 00:05 00:05 00:05 WBC 6.9 RBC 4.32 Hgb 10.5 L Hct 32.9 L MCV 76.1 L MCH 24.3 L MCHC 31.9 L RDW 18.5 H Plt Count 290 MPV 7.8 Neut % (Auto) 67.0 Lymph % (Auto) 26.8 [place] % (Auto) 4.7 Eos % (Auto) 0.7 Baso % (Auto) 0.8 Neut # (Auto) 4.7 Lymph # (Auto) 1.9 [place] # (Auto) 0.3 Eos # (Auto) 0.0 Baso # (Auto) 0.1 WBC Differential . Differential Comment Auto diff final Sodium Potassium Chloride Carbon Dioxide Anion Gap BUN Creatinine Estimated GFR Random Glucose Calcium Total Bilirubin AST ALT Alkaline Phosphatase Total Protein Albumin TSH Beta HCG, Quant Salicylates 3.5 Urine Opiates Screen Acetaminophen Ur Barbiturates Screen Ur Amphetamines Screen U Benzodiazepines Scrn [place] Less than 0.1 L Urine Cocaine Screen U Cannabinoids Screen Serum Alcohol 01/16/18 01/16/18 01/16/18 00:05 00:05 07:50 WBC RBC Hgb Hct MCV MCH MCHC RDW Plt Count MPV Neut % (Auto) Lymph % (Auto) [place] % (Auto) Eos % (Auto) Baso % (Auto) Neut # (Auto) Lymph # (Auto) [place] # (Auto) Eos # (Auto) Baso # (Auto) WBC Differential Differential Comment Sodium 140 Potassium 3.2 L Chloride 106 Carbon Dioxide 26.4 Anion Gap 8 BUN 5 L Creatinine 0.56 Estimated GFR Greater than 89 Random Glucose 87 Calcium 8.9 Total Bilirubin 0.3 AST 16 ALT 19 Alkaline Phosphatase 89 Total Protein 7.9 Albumin 3.3 L TSH 2.270 Beta HCG, Quant 00777 H Salicylates Urine Opiates Screen Neg Acetaminophen Less than 2.0 L Ur Barbiturates Screen Neg Ur Amphetamines Screen Neg U Benzodiazepines Scrn Neg [place] Urine Cocaine Screen Neg U Cannabinoids Screen Neg Serum Alcohol Less than 3 Assessment and Plan - Diagnosis (1) 14-20 weeks gestation of Status: Acute - Plan 32 yo at approximately 17 weeks who is admitted for acute manic exacerbation of her bipolar disorder. --Patient will need an anatomy scan. We recommend that the patient receive her psychiatric medications approximately 30 minutes prior to the scan so that the patient will tolerate the study better. -- labs ordered. Seen and discussed with Dr. Vidal. Thank you for the consult. Attending note: Patient seen and examined with PGY 1 and PGY 3-ultrasound was terminated-the etiology of why was terminated is unknown but the patient reports that she has twins. The plan of care we need a complete anatomical survey to be done as well as unregistered lab. The remainder of the care will be according to the psychiatric team.
[2018-01-16 17:21] LABS: Baso % (Auto) 0.6 % (0.0-2.0); Eos # (Auto) 0.1 th/mm3 (0.0-0.4); Eos % (Auto) 1.8 % (0.0-4.0); Hemoglobin 10.1 gm/dL (11.6-15.3); Lymph # (Auto) 2.1 th/mm3 (1.0-4.8); Lymph % (Auto) 33.1 % (9.0-44.0); Mean Corpuscular HGB Conc 32.6 % (32.0-36.0); Mean Corpuscular Hemoglobin 24.6 pg (27.0-34.0); Mean Corpuscular Volume 75.3 fL (80.0-100.0); Mean Platelet Volume 7.5 fL (7.0-11.0); Mono # (Auto) 0.4 th/mm3 (0.0-0.9); Neut # (Auto) 3.7 th/mm3 (1.8-7.7); Neut % (Auto) 57.5 % (16.0-70.0); Platelet Count 257 th/mm3 (150-450); Red Blood Count 4.11 mil/mm3 (4.00-5.30); Red Cell Distribution Width 18.3 % (11.6-17.2); White Blood Count 6.4 th/mm3 (4.0-11.0)
[2018-01-16 18:52] LABS: Hepatitis A IgM Antibody Nonreactive (Nonreactive)
[2018-01-16 19:22] LABS: Hepatitits B Surface Antigen Nonreactive (Nonreactive)
[2018-01-16] MEDS: Senna/Docusate Sodium 8.6/50 MG Tablet PO SCH (21:22)
--- NOTE | 2018-01-16 22:49 | P.OBGPN ---
Attending note : Patient was seen history and physical exam with resident PGY 1 Dr. Peña + Dr. Cuba PGY 3. Patient is a 32-year-old currently . Called for a consult however not specific as to why called for the consult. Patient admitted to the psych unit. Patient's thoughts multiple flighty thoughts noted. However in discussion her gravity and parity unable to determine she reports that she has had 5 losses through this hospital however reports having 5 children at home. She denies but on occasion will admit that she has a history of bipolar disorder possible schizophrenia. She is not for certain why she is admitted to the hospital. She is not for certain how far she is in the states that she has twins and ultrasound was being performed however for whatever reason was discontinued the estimated gestational age is approximately 17 weeks but patient states ultrasound was stopped because they found 3 heartbeats. No care to date. Discussed with the patient will need to obtain a complete anatomical survey. As well as labs and that her discharge will be pending psychiatric evaluation and consultation. Otherwise from an OB standpoint she does not appear to have any imminent obstetrical needs at this time other than stated above.
[2018-01-17 07:10] LABS: Anion Gap 10 meq/L (5-15); Blood Urea Nitrogen 5 mg/dL (7-18); Calcium 9.4 mg/dL (8.5-10.1); Chloride 105 meq/L (98-107); Glomerular Filtration Rate Greater Than 89 mL/min (>89); Glucose,Random 96 mg/dL (74-106); Potassium 3.1 meq/L (3.5-5.1); Sodium 140 meq/L (136-145)
[2018-01-17 07:12] LABS: Cholesterol 222 mg/dL (120-200)
[2018-01-17 07:14] LABS: Chol/HDL Ratio 3.52 Ratio; LDL Cholesterol,Calculated 143 mg/dL (0-99); Triglycerides 80 mg/dL (42-150)
[2018-01-17] MEDS: Senna/Docusate Sodium 8.6/50 MG Tablet PO SCH ×2 (08:45→22:03)
[2018-01-17] MEDS: Haloperidol 5 MG Tablet PO SCH ×2 (08:45→22:03)
--- NOTE | 2018-01-17 12:42 | P.CONPSY ---
Provisional Diagnosis Admission Date: January 16, 2018 09:47 Rutledge I.: Bipolar disorder type I, acute manic exacerbation Rutledge II.: Deferred Rutledge III.: 21-week History of Present Illness Service: Psychiatry Consult date: 01/17/18 Requesting Physician: Rlaeigh Avery Reason for Consult: Second opinion Primary Care Provider: UNKNOWN Chief Complaint: History of Present Illness: The patient is a 32-year-old -[place] woman, domiciled with her grandmother, single, unemployed, supported by [facility], with psychiatric history of bipolar disorder, previous psychiatric hospitalizations, previously [facility], established outpatient care with [facility], she has not been in treatment throughout the , no previous suicidal attempts, she is 17 week of , who presents emergency department and flight of ideas and a suspected manic episode patient was admitted to the inpatient psychiatry for further evaluation and management. Patient was found previously during the group noted be talking to self, elevated mood and mentioning wanting to be discharged. Patient was later seen on the unit noted to be demanding nurses to see her doctor and she states she needs to be discharged today. Patient states she came to the hospital because she had "passed out" and brought herself for evaluation. Patient mentions that she follows at [facility] for schizophrenia and have not been on medications. Patient was noted to have flight of ideas, loosening associations disorganized and labile during interview. Patient was advised that she will require further stabilization and to continue recommendations of continuing Haldol. Collateral formation obtained by patient's clinics care for the patient was last seen on 12/23/17 and at that time had endorsed auditory hallucinations with distractibility and had refusing to take medications at that time. Review of Systems All other systems reviewed negative except as stated in HPI PMFSH - History History Provided By: Patient, Medical Record - Medical History Medical History: Medical History (Last Updated 10/11/17 @ 19:18 by Paco Pool) Bipolar 1 disorder Schizophrenia - Tobacco History Second Hand Smoke Exposure: Yes Tobacco Use In Past 30 Days: Yes Smoking Status: Current some day smoker Tobacco Type: Cigarettes - Alcohol History How Often Do You Have a Drink Containing Alcohol: Monthly or less - Substance Use History Substance History: No History of Abuse - Travel History Recent Travel in the [place] Within the Last 8 Weeks: No Recent Travel Out of the Country Within the Last 8 Weeks: No - Immunization History Tetanus Immunization: Unsure Hx Influenza Vaccine This Season: No Medications and Allergies Active Medications: Active Medications Al Hydrox/Mg Hydrox/Simethicone (Mag-Al Plus Susp Liq) 30 ml PO Q6H PRN PRN Reason: DYSPEPSIA Al Hydroxide/Mg Hydroxide (Milk Of Magnesia Liq) 30 ml PO Q12H PRN PRN Reason: Mild Constipation Bisacodyl (Dulcolax Supp) 10 mg RECTAL DAILY PRN PRN Reason: SEVERE CONSITIPATION Diphenhydramine HCl (Benadryl) 25 mg PO BID [facility] Haloperidol (Haldol) 5 mg PO BID [facility] Last Admin: 01/17/18 08:45 Dose: 5 mg Lactulose (Lactulose Liq) 30 ml PO DAILY PRN PRN Reason: SEVERE CONSITIPATION Senna/Docusate Sodium (Corazon-Colace) 1 tab PO BID [facility] Last Admin: 01/17/18 08:45 Dose: 1 tab Sennosides (Senokot) 17.2 mg PO Q12H PRN PRN Reason: Moderate Constipation Allergies Allergy/AdvReac Type Severity Reaction Status Date / Time No Known Allergies Allergy Uncoded 10/31/16 10:22 Home Medications Medication Instructions Recorded Confirmed Type Unable to Obtain Home Meds 01/15/18 01/15/18 History Exam Vital signs: Vital Signs 01/16/18 15:40 01/17/18 06:31 Temperature 98.0 F Pulse Rate 81 74 Respiratory Rate 18 18 Blood Pressure 120/79 117/65 Pulse Oximetry 100 98 Intake & Output 01/16/18 01/17/18 01/17/18 18:59 06:59 18:59 Weight 97.5 kg Other: Weight On Admission 97.5 kg - Constitutional no acute distress, cooperative Mental Status Examination Appearance: Disheveled Consciousness: Alert Orientation: x4 Motor Activity: Normal gait Speech: Pressured, Rapid Language: Adequate Fund of Knowledge: Adequate Attention and Concentration: Adequate Memory: Unremarkable Mood: Irritable, Manic Affect: Appropriate, Irritable, Labile Thought Process & Associations: Loose associations, Tangential Thought Content: Preoccupations, Delusional Hallucination Type: None Delusion Type: Bizarre, Paranoid Suicidal Ideation: No Suicidal Plan: No Suicidal Intention: No Homicidal Ideation: No Homicidal Plan: No Homicidal Intention: No Insight: Poor Judgment: Poor Assessment and Plan - Assessment (1) Bipolar 1 disorder Code(s): F31.9 - Bipolar disorder, unspecified Status: Acute - Plan Plan: I have seen and examined this patient, reviewed the documentation, and I agree and concur with Dr. Bradshaw assessment and plan. I have completed second opinion for the petition for involuntary hospitalization. Consult appreciated. Justification for Continued Inpatient Stay: At risk of further decompensation at lower level care.
--- NOTE | 2018-01-17 16:41 | P.OBGPN ---
Ultrasound completed and preliminary report reviewed as follows: - single gestation , cephalic position, size appropriate, measuring 18wk3d, no anomalies seen Normal as far as we can see. Nothing to add at this time. Financial Analysis Manager will sign off. Advise pt to follow up with routine care.
[2018-01-17 17:58] LABS: Hemoglobin A1c 5.9 % (4.3-6.0)
[2018-01-18] MEDS: Haloperidol 5 MG Tablet PO SCH ×2 (10:28→20:30)
[2018-01-18] MEDS: Senna/Docusate Sodium 8.6/50 MG Tablet PO SCH ×2 (10:28→20:30)
--- NOTE | 2018-01-18 11:58 | P.TTN ---
- Patient Problems Problems: 1. Discharge planning 2. Medication compliance 3. Knowledge deficit 4. Lack of coping skills - Progress Toward Goals Provider Present: Dr. Alexandro Dickerson, Dr. Moi Zavala Provider Input: Per Dr. Zavala, pt is , medication has not been prescribed as yet (pt is new admit), poc is to return pt to home with boyfriend , when pt is stable, with f/u care in place per pt's status. Psychiatric Counselors Present: Shonda Salgado, [facility] Psychiatric Therapist Input: Counselor has not seen pt as yet, for this visit, pt has been psych admission in the past. Group Spec/RT/OT/FERNÁNDEZ Present: Kamla Burton, GPS, Jimbo Hankins, OT Group Spec/RT/OT/FERNÁNDEZ Input: Pt attends groups, she is anxious, demanding and intrusive, fixated on discharge. Additional Input: Per Dr. Zavala, pt is , medication has not been prescribed as yet (pt is new admit), poc is to return pt to home with boyfriend, when pt is stable, with f/u care in place per pt's status. - Documentation Teaching Recipient: Patient
--- NOTE | 2018-01-18 20:18 | P.PNPSY ---
Subjective Remarks: Patient seen for follow-up, chart reviewed. Discussion with nursing staff reported that patient continues to be intrusive needing redirection but no aggressive behavior. Patient was found in blade on unit focused on discharge. She states she has spoken to her mother at that she was told that her mother was not alive which she was not happy about being told this. Patient reports eating and drinking well, reports tolerating medications well. Patient continues to have some hyperverbal speech but able to be redirected. Review of Systems All other systems reviewed negative except as stated in HPI Mental Status Examination Appearance: Appropriate Consciousness: Alert Orientation: x4 Motor Activity: Normal gait Speech: Pressured, Rapid Language: Adequate Fund of Knowledge: Adequate Attention and Concentration: Adequate Memory: Unremarkable Mood: Irritable, Manic Affect: Appropriate, Labile Thought Process & Associations: Loose associations, Tangential Thought Content: Preoccupations Hallucination Type: None Delusion Type: Paranoid Suicidal Ideation: No Suicidal Plan: No Suicidal Intention: No Homicidal Ideation: No Homicidal Plan: No Homicidal Intention: No Insight: Poor Judgment: Poor Assessment and Plan - Assessment (1) Bipolar 1 disorder Code(s): F31.9 - Bipolar disorder, unspecified Status: Acute - Plan Plan: Patient continues with some lability, pressured speech and requiring redirection due to being very intrusive on the unit. No aggressive behavior. We will continue current treatment. We will continue monitor with behavior. Discharge planning a progress. Justification for Continued Inpatient Stay: At risk of further decompensation at lower level care.
[2018-01-19] MEDS: Senna/Docusate Sodium 8.6/50 MG Tablet PO SCH ×2 (08:00→20:06)
[2018-01-19] MEDS: Haloperidol 5 MG Tablet PO SCH ×2 (08:00→20:06)
--- NOTE | 2018-01-19 20:47 | P.PNPSY ---
Subjective Remarks: Patient seen for follow-up, chart reviewed. Discussion with nursing staff reported that patient focused on discharge less intrusive today. Patient was found ambulating on unit noted to be calm and cooperative noted to have less pressured speech, improved organization and able to maintain appropriate responses during questioning today. Patient states that she is feeling "good" reports having slept well. Patient states that she is feeling somewhat anxious that she would like to go home. Patient states that she has noticed feeling calmer with her medications, not drowsy, noticing that she is not slurring her speech and that she is sleeping well. Patient mentions that her uncle can provide support upon her discharge. Review of Systems All other systems reviewed negative except as stated in HPI Mental Status Examination Appearance: Appropriate Consciousness: Alert Orientation: x4 Motor Activity: Normal gait Speech: Pressured, Rapid Language: Adequate Fund of Knowledge: Adequate Attention and Concentration: Adequate Memory: Unremarkable Mood: Anxious Affect: Appropriate, Anxious Thought Process & Associations: Loose associations (Minimal), Linear Thought Content: Preoccupations (With discharge) Hallucination Type: None Delusion Type: None Suicidal Ideation: No Suicidal Plan: No Suicidal Intention: No Homicidal Ideation: No Homicidal Plan: No Homicidal Intention: No Insight: Fair Judgment: Impulsive Assessment and Plan - Assessment (1) Bipolar 1 disorder Code(s): F31.9 - Bipolar disorder, unspecified Status: Acute - Plan Plan: Patient noted to be improving with less lability less pressured speech, less disorganized and able to be easily redirected. Patient continue current treatment. Patient continues to improve likely discharge tomorrow to family. Continue to monitor mood and behavior. Discharge planning in progress. Justification for Continued Inpatient Stay: At risk of further decompensation at lower level care.
[2018-01-20 06:11] VITALS: BP 113/56; PULSE 75; RESP 18; TEMP 98; O2SAT 98
[2018-01-20] MEDS: Senna/Docusate Sodium 8.6/50 MG Tablet PO SCH (08:13)
[2018-01-20] MEDS: Haloperidol 5 MG Tablet PO SCH (08:13)
--- NOTE | 2018-01-20 09:33 | P.DSPSY ---
Psychiatry Discharge Summary Inpatient Psychiatric care?: Yes Advance Directives: No Mental Health Advance Directive: No Health Care Proxy: No - Admission Admission Date: January 16, 2018 09:47 - Admission Diagnosis (1) Bipolar 1 disorder Code(s): F31.9 - Bipolar disorder, unspecified Brief History: The patient is a 32-year-old -[place] woman, domiciled with her grandmother, single, unemployed, supported by [facility], with a significant psychiatric history of bipolar disorder, previous psychiatric hospitalizations, the last hospitalization was over 10 years ago, established outpatient care with [facility], she has not been in treatment throughout the , no previous suicidal attempts, she is in the 21st week of , who presents emergency department and flight of ideas and a suspected manic episode. Patient told triage upfront she thinks she has AIDS and should not be outdoors. For me she is flight of ideas and starts our conversation with "I am not under a Coombs act ". When asked if she is been under Coombs act before she states I do not know. She is interacting with unseen people in the room. She really is limited in her history. Chart reviewed. No collateral information available at this moment. On psychiatric evaluation the patient is found in the curry, she has been walking back and forward, asking to be released. The patient has been medicated already twice with IM medication in order to calm her down. She is disorganized, with a prominent increase in language production, at times pressure speech. She says that she has twins, "and I even believe that I have 3 kids inside me". She keeps saying that she is here in the hospital because she passed out, she said "is not that I talk a lot, is that you do not understand me, my mother, grandmother and to my uncles were killed last night". At the same time that the patient is expressing his ideas, she is laughing very inappropriately. She has been witnessed talking to herself, she is unable to stay still 1 second in the unit, constantly knocking doors, enter into other patient's rooms. She is fully oriented x3, no gross cognitive impairment present. PPHx: significant psychiatric history of bipolar disorder, previous psychiatric hospitalizations, the last hospitalization was over 10 years ago, established outpatient care with [facility], she has not been in treatment throughout the , no previous suicidal attempts, PMHx: 21 week Substance Hx: She denies Family Hx: Mother and father are bipolar Social Hx: Patient was born in [place], she lives with her grandmother in [facility], she is single, she has a boyfriend, unemployed, supported by [facility], her highest level of education is high school. Tobacco Use In Past 30 Days: Yes How Often Do You Have a Drink Containing Alcohol: Monthly or less Hospital Course: The patient is a 32-year-old -[place] woman, domiciled with her grandmother, single, unemployed, supported by [facility], with psychiatric history of bipolar disorder, previous psychiatric hospitalizations, previously admitted to [facility], established outpatient care with [facility], she has not been in treatment throughout the , no previous suicidal attempts, she is 17 week of , who presents emergency department and flight of ideas and a suspected manic episode patient was admitted to the inpatient psychiatry for further evaluation and management. Patient was admitted to a locked, inpatient psychiatric unit. Appropriate precautions were in place throughout patient's hospital stay. Patient was seen and examined on the unit by psychiatry. Psychotropic medications were adjusted. There was no evidence of any suicidality or homicidality on the inpatient unit. Patient's mood and psychosis improved with the benefit of psychopharmacological treatment and had no behavioral disturbance since admission. Patient was noted to have reached stable mood, noted to participate and engage in treatment and interact with staff adequately. Patient noted to be future oriented with plans to continue treatment and outpatient follow-up appointments for continuity of care. Counselor has arranged discharge plan. On the day of discharge: Patient seen and examined; chart reviewed. Case discussed with nurse and counselor. No behavioral issues overnight. On my examination today, the patient denies any suicidal homicidal ideation, intent or plan on direct questioning and contracts for safety. Patient denies any perceptional disturbances and no delusional material verbalized today. Patient denies any side effects from medication and has understanding of medication regimen and education. No physical complaints. Suicide and violence risk assessment on day of discharge both suggest lower imminent risk, and the patient's level of function is adequate for plan level of outpatient care. Patient has maximized benefit from this inpatient psychiatric hospital stay and will be discharged with discharge plan as arranged by counselor. Patient advised to return to psychiatric emergency room for any concerning psychiatric symptoms. Patient agrees with plan. - Discharge Discharge Date: 01/20/18 - Discharge Diagnosis (1) Bipolar 1 disorder Code(s): F31.9 - Bipolar disorder, unspecified Status: Acute Discharge Disposition: Home - Discharge Instructions Discharge Diet: DIet Activities You Can Perform: Weight Bearing As Tolerat - Discharge Time > 30 minutes Mental Status Examination Appearance: Appropriate Consciousness: Alert Orientation: x4 Motor Activity: Normal gait Speech: Pressured, Rapid Language: Adequate Fund of Knowledge: Adequate Attention and Concentration: Adequate Memory: Unremarkable Mood: Anxious Affect: Appropriate Thought Process & Associations: Loose associations (Minimal), Linear Thought Content: Appropriate Hallucination Type: None Delusion Type: None Suicidal Ideation: No Suicidal Plan: No Suicidal Intention: No Homicidal Ideation: No Homicidal Plan: No Homicidal Intention: No Insight: Fair Judgment: Impulsive Discharge/Advance Care Plan - Results Vital Signs: Last Vital Signs Temp 98.0 F 01/20/18 06:00 Pulse 75 01/20/18 06:00 Resp 18 01/20/18 06:00 BP 113/56 L 01/20/18 06:00 Pulse Ox 98 01/20/18 06:00 Lab Results: Laboratory Results Hemoglobin A1c 5.9 % (4.3-6.0) 01/17/18 05:53 Triglycerides 80 mg/dL (42-150) 01/17/18 05:55 Cholesterol 222 mg/dL (120-200) H 01/17/18 05:55 LDL Cholesterol, Calc 143 mg/dL (0-99) H 01/17/18 05:55 HDL Cholesterol 63.0 mg/dL (40.0-60.0) H 01/17/18 05:55 TSH 2.270 uIU/mL (0.358-3.740) 01/16/18 00:05 [place] Less than 0.1 meq/L (0.5-1.5) L 01/16/18 00:05 Summary of Procedures: none Pending Results: None - Medications Number of antipsychotic medications at discharge: 1 - Discharge Care Plan Goals to Promote Your Health: * To prevent worsening of your condition and complications * To maintain your health at the optimal level Directions to Meet Your Goals: Take your medications as prescribed Follow your dietary instruction Follow activity as directed Keep your appointments as scheduled Take your immunizations and boosters as scheduled If your symptoms worsen call your PCP, if no PCP go to Urgent Care Center or Emergency Room For 01/11 questions related to your inpatient stay or results of tests pending at discharge, please contact Dr. José Zavala MD at Smoking is Dangerous to Your Health. Avoid second hand smoking
== END 2018-01-20 11:00 | disposition home or self-care (01) ==
LOC: NEPD 20:22 → NEDA 01-16 09:47 → H270 01-16 15:06 → H4EA 01-17 16:25
PROVIDERS: ADMIT Student in an Organized Health Care Education/Training Program; ATTEND Student in an Organized Health Care Education/Training Program